=== PATIENT | female | born 1980 | race African-American/Black ===

== ENCOUNTER 2022-10-07 18:13 | Emergency (ER) | payer BC, SELFPAY ==
--- NOTE | ~2022-10-07 | XR_ITS ---
EXAMINATION: XR chest 2V DATE: 10/07/2022 18:41 INDICATION: Chest pain. TECHNIQUE: Frontal and lateral views of the chest were obtained. COMPARISON: None. FINDINGS: There is no pneumonia, pleural effusion, or pneumothorax. Cardiomegaly is noted. IMPRESSION: 1. Cardiomegaly. Reviewed, dictated and finalized at location E. IMPRESSION: 1. Cardiomegaly.
--- NOTE | 2022-10-07 18:19 | ECG_ITS ---
Measurements Intervals [place] Rate: 78 P: 9 OK: 155 QRS: -9 QRSD: 97 T: 0 QT: 357 QTc: 407 Interpretive Statements SINUS RHYTHM INCOMPLETE RIGHT BUNDLE BRANCH BLOCK DELAYED PRECORDIAL R/S TRANSITION BORDERLINE ECG NO PREVIOUS ECG AVAILABLE FOR COMPARISON Electronically Signed On 10-07-2022 21:14:43 CDT by Gerardo Robertson D.O.
[2022-10-07 18:24] VITALS: BP 125/78; PULSE 78; RESP 16; TEMP 36.5; O2SAT 97
[2022-10-07 22:15] LABS: Basophils Absolute Auto 0.1 K/mm3 (0.0-0.1); Basophils Percent Auto 0.7 % (0.2-1.2); Eosinophils Absolute Auto 0.1 K/mm3 (0-0.3); Eosinophils Percent Auto 1.5 % (0-4.4); Hemoglobin 13.4 g/dL (12.0-15.0); Immature Granulocyte Absolute 0.02 K/mm3 (0.00-0.031); Immature Granulocyte Percent A 0.3 % (0-0.5); Lymphocytes Absolute Auto 2.77 K/mm3 (0.9-3.2); Lymphocytes Percent Auto 41.2 % (18.3-44.2); Mean Corpuscular HGB Conc 31.2 g/dl (32-36); Mean Corpuscular Hemoglobin 25.9 pg (26-34); Mean Corpuscular Volume 83.2 fl (80-100); Mean Platelet Volume 12.8 fl (7.4-10.4); Monocytes Absolute Auto 0.5 K/mm3 (0.1-0.6); Neutrophils Absolute Auto 3.2 K/mm3 (1.3-6.7); Neutrophils Percent Auto 48.3 % (45.5-73.1); Platelet Count Result 221 k/mm3 (150-375); Red Blood Count 5.17 M/mm3 (4.2-5.4); Red Cell Distribution Width 13.6 % (11.5-14.5); White Blood Count 6.7 K/mm3 (4.5-10.0)
[2022-10-07 22:24] LABS: Alanine Aminotransferase 24 U/L (6-35); Albumin Level 4.7 g/dL (3.5-5.1); Alkaline Phosphatase 75 U/L (38-126); Anion Gap 10 mmol/L (8-16); Aspartate Amino Transferase 27 U/L (14-36); Bilirubin,Total 0.6 mg/dL (0.2-1.3); Blood Urea Nitrogen 13 mg/dL (7-17); Calcium 9.1 mg/dL (8.4-10.2); Carbon Dioxide 27 mmol/L (22-30); Chloride 103 mmol/L (98-107); Estimated CRCL calculation 78 ml/min; Estimated Glomerular Filt Rate > 60; Glucose 91 mg/dL (65-110); Lipase 118 U/L (23-300); Potassium 3.7 mmol/L (3.4-5.0); Sodium 140 mmol/L (137-145)
[2022-10-07 22:25] LABS: INR 0.9; Prothrombin Time 12.6 Seconds (11.1-14.7)
[2022-10-07 22:26] LABS: Partial Thromboplastin Time 34.6 SECONDS (22.3-36.8)
[2022-10-07 22:36] LABS: Troponin I < 0.012 ng/mL (0.000-0.034)
[2022-10-07] MEDS: MAG HYDROX/AL HYDROX/SIMETH 30 ML UDC PO (22:40)
[2022-10-07] MEDS: SODIUM CHLORIDE 0.9% IV 2,000 ML 999 ML IV CONT (22:41)
[2022-10-07] MEDS: FAMOTIDINE 20 MG/2 ML VIAL IV PUSH (22:59)
[2022-10-07 23:04] VITALS: PULSE 67; O2SAT 100
--- NOTE | 2022-10-07 23:40 | ED.GENADULT ---
HPI - General Adult General Chief complaint: Chest Pain Stated complaint: CP radiating to back and shoulders x 1 wk Time Seen by Provider: 10/07/22 21:48 History of Present Illness HPI narrative: This is a 42-year-old female presenting ED with chief complaint of abdominal pain chest pain and headache. Patient says that 2 weeks ago she started a juice cleanse were all she did was drink liquids. After she finished 5 days of use she drank a herbal tea. Since then she has been having burning pain in the epigastric area that spread to her chest and now she is having a headache. She just does not feel well overall. She has not gone back to eating a normal diet yet. She denies fever chills productive cough nausea vomiting or diarrhea. Related Data Allergies Allergy/AdvReac Type Severity Reaction Status Date / Time No Known Allergies Allergy Verified 10/07/22 18:15 [facility] Past Medical History Medical History (Updated 10/07/22 @ 23:49 by Benjie Booker MD) GERD (gastroesophageal reflux disease) Exam Narrative: APPEARANCE: No apparent distress. Patient is polite and pleasant during the interview. Head: atraumatic. EYES: EOMI, NOSE: Atraumatic NECK: Trachea midline RESPIRATORY: No increased rate of breathing Clear to auscultation CARDIOVASCULAR: RRR, no peripheral edema ABDOMINAL: tenderness in the epigastric area without guarding or rebound MUSCULOSKELETAl: No obvious deformities NEURO: Alert. Cranial nerves 2-12 grossly intact. Sensation light touch, motor function cerebellar function intact for 4 extremities. Gait exam was normal. SKIN:: Warm, dry. Normal color PSYCHIATRIC: Normal affect Course Vital Signs Vital signs: Vital Signs Temperature 97.7 F 10/07/22 18:24 Pulse Rate 78 10/07/22 18:24 Respiratory Rate 16 10/07/22 18:24 Blood Pressure 125/78 10/07/22 18:24 Pulse Oximetry 97 10/07/22 18:24 Oxygen Delivery Room Air 10/07/22 18:24 Temperature 97.7 F 10/07/22 18:24 Pulse Rate 67 10/07/22 23:04 Respiratory Rate 16 10/07/22 18:24 Blood Pressure 125/78 10/07/22 18:24 Pulse Oximetry 100 10/07/22 23:04 Oxygen Delivery Room Air 10/07/22 23:04 Medical Decision Making MDM Narrative Medical decision making narrative: -Presentation: 42-year-old female presenting with epigastric pain and chest burning after a one-week juice cleanse. She has a history of GERD and has not been taking her Pepcid. Screening lab work has been ordered chest x-ray and EKG. She will be given medicine for her reflux as well as a headache. -DDX includes but is not limited to: GERD, gastritis, fasting side effect, benignheadache, ACS pneumonia -Co-morbidities complicating care: recent fasting, history of GERD and medication noncompliance -Social determinants of health: patient works as a counselor lives with her I room -External Chart Review: Cesar -Hx from independent Sources: at bedside -Independent interpretation of studies: CBC normal. Metabolic panel normal. Troponin undetectable. Independent EKG interpretation: Rhythm [sinus], Rate [78], [place] -[normal], [place] -[normal], QRS [narrow], QTC [normal], T waves -[negative for concerning inversions], ST Segments - [Negative for concerning elevations] Final interpretations: [Normal Sinus Rhythm] Chest x-ray no acute findings. -Discussion of Management/Consultants: none -Dx tests considered but not ordered: PE studies, PERC negative. -Procedures: none -Interventions: 2 L normal saline, Benadryl, Compazine, Maalox, Pepcid -Shared decision making / Disposition: upon re-evaluation patient is improved. Vital signs are still stable. Safe for discharge.She has been instructed to sleep well, eat healthy, and exercise but to avoid extreme dieting. -RX pepcid Vital Signs Vital Signs: Vital Signs Temperature 97.7 F 10/07/22 18:24 Pulse Rate 78 10/07/22 18:24 Respiratory Rate 16 0
[2022-10-08 00:18] VITALS: BP 139/87; PULSE 65; RESP 14; O2SAT 100
== END 2022-10-08 00:29 | disposition home or self-care (01) ==
PROVIDERS: Emergency Medicine; Emergency Provider Emergency Medicine
DX: K29.70 Gastritis, unspecified, without bleeding (principal); K21.9 Gastro-esophageal reflux disease without esophagitis; I45.10 Unspecified right bundle-branch block
CPT/HCPCS: 36415; 71046; 80053; 83690; 84484; 85025; 85610; 85730; 93005; 96361; 96374; 99284; A9270; J7030